=== PATIENT | female | born 1985 | race Caucasian/White ===

== ENCOUNTER 2019-07-22 10:24 | Inpatient (IN) | payer MEDICAID ==
[~2019-07-22] VITALS: Ht 170.2 cm; Wt 127.3 kg
[2019-07-22] MEDS ORDERED: loperamide 2mg capsule PO PRN (12:50)
[2019-07-22] MEDS ORDERED: acetaminophen 325mg tablet PO PRN ×2 (12:50)
[2019-07-22] MEDS ORDERED: magnesium hydroxide 30ml (MOM) UD suspension PO PRN (12:50)
[2019-07-22] MEDS ORDERED: NICOTINE POLACRILEX 2 MG LOZENGE BC PRN (12:50)
[2019-07-22] MEDS ORDERED: mag hydrox/Alum hydrox/simeth 30ml oral suspension PO PRN (12:50)
[2019-07-22] MEDS ORDERED: LORazepam 1 MG tablet PO PRN (12:50)
[2019-07-22] MEDS ORDERED: INSU100I31 SQ (13:03)
[2019-07-22] MEDS ORDERED: METF500T PO (13:03)
[2019-07-22] MEDS ORDERED: GABA-530 PO (13:03)
[2019-07-22] MEDS ORDERED: DULA1.5P (13:15)
[2019-07-22] MEDS ORDERED: NAPR-56 PO (13:15)
[2019-07-22] MEDS ORDERED: GLAT40SY3 SQ (13:15)
[2019-07-22 14:00] VITALS: BP 116/75
--- NOTE | 2019-07-22 15:47 | NUR ---
Admit note: PT [facility] on a 5150 for DTS. Pt arrived at 1520 escorted by security from [facility]. Pt posted on social media she was going to kill herself. Pt had a knife and told police she would stab herself or get them to shoot her. Pt states "I want to and no one wants to help." PT brought in to [place] by Lab Director officers. Pt had earlier in the week made an abrasion to her L neck stating this is the 3rd suicide attempt. Pt overdosed last year. Stressors include meeting a tommy online and planned to move in but this fell through.
[2019-07-22] MEDS ORDERED: FLU VACC QS 2019-20 (6 MOS UP) 60 MCG/0.5 ML VIAL IMVAC ONE (18:30)
[2019-07-22 20:00] VITALS: BP 132/69
[2019-07-22] MEDS ORDERED: CITA20TA28 PO (20:50)
[2019-07-22] MEDS ORDERED: naproxen 500mg tablet PO PRN (20:55)
[2019-07-22] MEDS ORDERED: dextrose 50%-water 50ml dispensing syringe IV PRN ×2 (21:00)
[2019-07-22] MEDS ORDERED: dextrose ORAL solution 15 GM/59 ML bottle PO PRN ×2 (21:00)
[2019-07-22] MEDS ORDERED: glucagon, human recombinant 1mg kit SUBCUT PRN (21:00)
[2019-07-22] MEDS ORDERED: metFORMIN 500mg tablet PO ONE (21:35)
[2019-07-22] MEDS: gabapentin 100mg capsule PO SCH (22:21)
[2019-07-22] MEDS: hydrOXYzine 25 MG tablet PO PRN (22:22)
[2019-07-22] MEDS: insulin glargine (Lantus) pen - multi-dose SQ SCH (22:27)
--- NOTE | 2019-07-23 02:15 | NUR ---
Nursing Progress Note: Legal hold: 5150 Client on involuntary status for DTS Report received from nurse with use of SBAR: JACI Chahal Why are they here: Pt. admitted to [facility] on a 5150 for DTS. She is from [facility] and was transferred from [facility]. Pt posted on social media she was going to kill herself and her mother called the police. When they arrived, pt. had a knife and told police she would stab herself or get them to shoot her. Pt states "I want to and no one wants to help." Pt had earlier in the week made an abrasion to her L neck stating this is the 3rd suicide attempt, and she had previously overdosed last year. Stressors include meeting a tommy online, and planned to move in but this fell through. Assessment What has happened this shift: Pt. sitting in her room reading at the beginning of the shift, this selling underwriter introduced self and established rapport. Pt. presents as guarded, cooperative, and slightly restless. Med Rec completed with pt. input, and medications ordered (per pharmacy pt. will need to bring Trulicity and Glatiramer Acetate from home). Pt. is a diabetic, HS BS obtained and WNL, and ordered HS Lantus administered. Pt. up playing cards in the Group Room and interacting appropriately with others, she then requests to get phone numbers off her cell phone and is monitored by staff while this task is completed. 1:1 completed at bedside after pt. done making phone calls. She continues to endorse S/I, however denies a plan at this time. Pt. states, "You don't have to worry about me, I'm not going to try anything." Pt. identifies stressors as living with family (mother and sister) who are not supportive, states, "I am always the one taking care of others, but no one wants to help me." Pt. 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 This selling underwriter provided active listening and pt. voiced content. Pt. refuses to complete family history assessment at this time r/t fatigue, will endorse to AM shift. She requested PRN Atrax at HS r/t restlessness and insomnia, administered with effectiveness. S/I, H/I: Ongoing S/I, however denies a plan A/VH: Denies Sleep: Pt. requested PRN Atrax at HS r/t restlessness and insomnia, administered with effectiveness. ADL's: Independent Group attendance: Pt. attends snack Were meds taken: Yes Any med S/E: None Mental Status Exam Appearance: Appropriately dressed, wearing a beanie on her head and a sweater Eye contact: Good Behavior: Guarded, cooperative, and slightly restless Speech: WNL, intense at times Mood: Guarded Affect: Constricted Thought process: WNL Thought Content: Preoccupation with depressed thoughts and hopelessness Cognition: A&O X4 Insight: Poor Judgment: Poor Interventions PRN's used: Atrax Therapeutic interventions: Introduced self and established rapport, maintained a safe and therapeutic environment, ensured contract for safety, competed Med Recc, initiated ACHS accuchecks, and maintained Q 15 min safety checks. Restraints/seclusion/emergency medication: N/A Justification of Continued Inpatient Treatment: Pt. requires interruption of current crisis, medication adjustments, and a safe and supportive environment.
[2019-07-23] MEDS: gabapentin 100mg capsule PO SCH ×3 (07:52→21:34)
[2019-07-23] MEDS: metFORMIN 500mg tablet PO SCH ×2 (07:56→17:12)
[2019-07-23 08:00] VITALS: BP 122/65
[2019-07-23] MEDS ORDERED: citalopram 20mg tablet PO SCH (08:00)
[2019-07-23 08:30] LABS: CHOL/HDL RATIO 4.4 (0.00-4.99); CHOLESTEROL 166 MG/DL (0-200); HDL CHOLESTEROL 38 MG/DL (35-60); LDL CHOLESTEROL 111 MG/DL (50-100); TRIGLYCERIDES 170 MG/DL (20-135)
--- NOTE | 2019-07-23 16:24 | NUR ---
Nursing Note: Wound care for Left great toe. White boarder with a deep red spot inside. Pt states she has "debrided it" before. She states last noc they used Saline flush , triple abx ointment and a bandaid. She states it was "an infection under a callous". She states she "went to a doctor in [place] and he didn't know what to do". Pt denies pain, but also states she has neuropathy. She states when it's infected she "can feel pain on the top sometimes".Wound redressed with cleansing with New saline flush, triple abx and bandaid.
--- NOTE | 2019-07-23 16:29 | NUR ---
Nursing Progress Note: Legal hold: 5150 Client on involuntary status for DTS Report received from nurse with use of SBAR: Jazmine Hayes RN Why are they here: Pt. admitted to [facility] on a 5150 for DTS. She is from [facility] and was [place] [facility]. Pt posted on social media she was going to kill herself and her mother called the police. When they arrived, pt. had a knife and told police she would stab herself or get them to shoot her. Pt states "I want to and no one wants to help." Pt had earlier in the week made an abrasion to her L neck stating this is the 3rd suicide attempt, and she had previously overdosed last year. Stressors include meeting a tommy online, and planned to move in but this fell through. Assessment What has happened this shift: Pt. Sleeping at beginning of shift.. Pt awakened for AM BG and was calm, cooperative and pleasant. Meds administered. When asked about home meds, Trulicity and Glatiramer Acetate , pt states my mom will not bring them, she lives over 3 hours away. Pt. is a diabetic, HS BS obtained and WNL, Pt. up playing cards in the Group Room and interacting appropriately with others. She continues to endorse S/I, however denies a plan at this time. She states she is depressed. I want to get out of [place], but I cant get a job and have no money. There is nothing to do there,; its so lonely. Pt. identifies stressors as living with her mother and feeling trapped in [place] town, unable to move anywhere else. RN provided active listening. Wound care provided to Left great toe and wound consult placed per RN. S/I, H/I: Ongoing S/I, however denies a plan A/VH: Denies Sleep: Took naps throughout the day ADL's: Independent Group attendance: Pt.playing cards with other residents in the group room. Were meds taken: Yes Any med S/E: None Mental Status Exam Appearance: Appropriately dressed, wearing a beanie on her head and a sweater Eye contact: Good Behavior: Cooperative Speech: WNL Mood: Calm Affect: Reserved but appropriate Thought Content: WNL Thought Content: Preoccupation with depressed thoughts and hopelessness Cognition: A&O X4 Insight: Poor Judgment: Poor Interventions PRN's used: None Therapeutic interventions: Introduced self and established rapport, maintained a safe and therapeutic environment, ensured contract for safety, ACHS accuchecks, and maintained Q 15 min safety checks. Restraints/seclusion/emergency medication: N/A Justification of Continued Inpatient Treatment: Pt. requires interruption of current crisis, medication adjustments, and a safe
[2019-07-23 20:00] VITALS: BP 128/75
[2019-07-23] MEDS: hydrOXYzine 25 MG tablet PO PRN (21:35)
[2019-07-23] MEDS: insulin glargine (Lantus) pen - multi-dose SQ SCH (21:41)
--- NOTE | 2019-07-24 04:09 | NUR ---
Nursing Progress Note: Legal hold: 5150 Client on involuntary status for DTS Report received from nurse with use of SBAR: JACI Chahal Why are they here: Pt. admitted to [facility] on a 5150 for DTS. She is from [facility] and was transferred from [facility]. Pt posted on social media she was going to kill herself and her mother called the police. When they arrived, pt. had a knife and told police she would stab herself or get them to shoot her. Pt states "I want to and no one wants to help." Pt had earlier in the week made an abrasion to her L neck stating this is the 3rd suicide attempt, and she had previously overdosed last year. Stressors include meeting a tommy online, and planned to move in but this fell through. Assessment What has happened this shift: Received pt up, visible on the unit. After meeting with PA, pt sitting in dayroom on the phone. At one point, pt became tearful, but said she was ok. When pt got off phone, she was cooperative with assessment and denied current suicidal thoughts, but stated she remains depressed. Pt did not want to discuss phone call. Pt talked about her MS and blamed a lot on that. Pt fell asleep at 2200. S/I, H/I: Ongoing S/I, however denies a plan A/VH: Denies Sleep: Pt. requested PRN Atrax at HS r/t restlessness and insomnia, administered with effectiveness. ADL's: Independent Group attendance: Pt. attends HS snack Were meds taken: Yes Any med S/E: None Mental Status Exam Appearance: Appropriately dressed, wearing a beanie on her head and a sweater Eye contact: Good Behavior: Guarded, cooperative, and slightly restless Speech: WNL, intense at times Mood: Guarded Affect: Constricted Thought process: WNL Thought Content: Preoccupation with depressed thoughts and hopelessness Cognition: A&O X4 Insight: Poor Judgment: Poor Interventions PRN's used: Atrax Therapeutic interventions: Introduced self and established rapport, maintained a safe and therapeutic environment, ensured contract for safety, competed Med Recc, initiated ACHS accuchecks, and maintained Q 15 min safety checks. Restraints/seclusion/emergency medication: N/A Justification of Continued Inpatient Treatment: Pt. requires interruption of current crisis, medication adjustments, and a safe and supportive environment.
[2019-07-24] MEDS: metFORMIN 500mg tablet PO SCH ×2 (07:18→17:27)
[2019-07-24] MEDS: gabapentin 100mg capsule PO SCH ×3 (07:19→20:21)
[2019-07-24] MEDS: citalopram 20mg tablet PO SCH (07:19)
[2019-07-24 07:51] VITALS: BP 140/78
--- NOTE | 2019-07-24 10:19 | NUR ---
DM Consult: A1C 7.6. DM ed deferred at this time. Pt admit w/ depression PO 75-100% avg meals meeting needs. TG 170; SABINA d/w RN regarding anti-hyperlipidemic per MD approval. [facility] 07/22. Will continue to monitor. Rec: 1. continue carb controlled diet 2. anti-hyperlipidemic per MD approval w/ TG 170 3. routine bowel care 4. wt per rx Addendum: 07/24/19 at [address] Amended: Links added.
--- NOTE | 2019-07-24 17:01 | NUR ---
Nursing Progress Note: Legal hold: 5150 Client on involuntary status for DTS Report received from nurse with use of SBAR: Yariel RN Why are they here: Pt. admitted to [facility] on a 5150 for DTS. She is from [facility] and was transferred from [facility]. Pt posted on social media she was going to kill herself and her mother called the police. When they arrived, pt. had a knife and told police she would stab herself or get them to shoot her. Pt states "I want to and no one wants to help." Pt had earlier in the week made an abrasion to her L neck stating this is the 3rd suicide attempt, and she had previously overdosed last year. Stressors include meeting a tommy online, and planned to move in but this fell through. Assessment What has happened this shift: Pt sleeping at change of shift. She was compliant with medication administration and cooperative with assessment. She reports feeling depressed, but shares that she feels better. She indicated she likes the Citalopram and feels the increased dose has made her feel better. She denied anxiety, SI, and A/V H. She stated that she had good news and that her friend, Ronn, is going to visit her. Pt shared she talked on the phone with him last night and he told her he loves her. She described her plans to go and live with him in [place]. The plans include the man taking her by bus to the [facility] and because he does not have a drivers license she will drive his car to [place]. While talking about her dislike of living in [place], she stated she cannot find a job there and no single men are available. Redirected the pt to carefully consider her plans and ensure she is thinking through all options. The pt has wound on her L great toe. Wound cleansed with NS, picture taken, antibiotic ointment applied and bandage used to cover wound. Awaiting ordered wound care consult. Pt reports she has neuropathy and she cannot feel her toes. S/I, H/I: Denies A/VH: Denies Sleep: Napped ADL's: Independent Group attendance: No Were meds taken: Yes Any med S/E: None noted or reported Mental Status Exam Appearance: Pt wearing street clothes and a beanie on her head. Eye contact: Direct Behavior: Pleasant and cooperative Speech: WNL, intense at times Mood: Depressed Affect: Constricted Thought process: Linear, impulsive Thought Content: Excited man is coming to visit her. Cognition: A&O X4 Insight: Poor Judgment: Poor Interventions PRN's used: None Therapeutic interventions: Introduced self and established rapport, maintained a safe and therapeutic environment, ensured contract for safety, 1:1 therapeutic assessment, active listening, monitored blood glucose levels, and maintained Q 15 min safety checks. Restraints/seclusion/emergency medication: N/A Justification of Continued Inpatient Treatment: Pt. requires interruption of current crisis, medication adjustments, and a safe and supportive environment.
[2019-07-24 19:00] VITALS: BP 122/75
[2019-07-24] MEDS: insulin glargine (Lantus) pen - multi-dose SQ SCH (20:43)
[2019-07-24] MEDS: hydrOXYzine 25 MG tablet PO PRN (20:45)
--- NOTE | 2019-07-24 23:02 | NUR ---
Nursing Progress Note: Legal hold: 5150 Client on involuntary status for DTS Report received from nurse with use of SBAR: Yariel RN Why are they here: Pt. admitted to [facility] on a 5150 for DTS. She is from [facility] and was transferred from [facility]. Pt posted on social media she was going to kill herself and her mother called the police. When they arrived, pt. had a knife and told police she would stab herself or get them to shoot her. Pt states "I want to and no one wants to help." Pt had earlier in the week made an abrasion to her L neck stating this is the 3rd suicide attempt, and she had previously overdosed last year. Stressors include meeting a tommy online, and planned to move in but this fell through. Assessment What has happened this shift: Pt up in group room at change of shift. She was compliant with medication administration and cooperative with assessment. She reports feeling depressed, but shares that she feels better. She denied anxiety, SI, and A/V H. Pt talked about her dislike of living in [place], she stated she cannot find a job there and no single men are available. Redirected the pt to carefully consider her plans and ensure she is thinking through all options. The pt has wound on her L great toe. Wound cleansed with NS, picture taken, antibiotic ointment applied and bandage used to cover wound. Awaiting ordered wound care consult. Pt reports she has neuropathy and she cannot feel her toes. S/I, H/I: Denies A/VH: Denies Sleep: Napped ADL's: Independent Group attendance: No Were meds taken: Yes Any med S/E: None noted or reported Mental Status Exam Appearance: Pt wearing street clothes and a beanie on her head. Eye contact: Direct Behavior: Pleasant and cooperative Speech: WNL, intense at times Mood: Depressed Affect: Constricted Thought process: Linear, impulsive Thought Content: Excited man is coming to visit her. Cognition: A&O X4 Insight: Poor Judgment: Poor Interventions PRN's used: None Therapeutic interventions: Introduced self and established rapport, maintained a safe and therapeutic environment, ensured contract for safety, 1:1 therapeutic assessment, active listening, monitored blood glucose levels, and maintained Q 15 min safety checks. Restraints/seclusion/emergency medication: N/A Justification of Continued Inpatient Treatment: Pt. requires interruption of current crisis, medication adjustments, and a safe and supportive environment.
[2019-07-25] MEDS: metFORMIN 500mg tablet PO SCH (07:00)
[2019-07-25 07:53] VITALS: BP 132/72
[2019-07-25] MEDS: gabapentin 100mg capsule PO SCH ×2 (08:49→12:40)
[2019-07-25] MEDS: citalopram 20mg tablet PO SCH (08:49)
[2019-07-25] MEDS ORDERED: CITA-124 PO (15:27)
[2019-07-25] MEDS ORDERED: NICO-668 BC (15:27)
--- NOTE | 2019-07-25 15:30 | NUR ---
Nursing Progress Note: Shanta Legal hold: 5150 Client on involuntary status for DTS Report received from nurse with use of SBAR: Any Why are they here: Pt. admitted to [facility] on a 5150 for DTS. She is from [facility] and was transferred from [facility]. Pt posted on social media she was going to kill herself and her mother called the police. When they arrived, pt. had a knife and told police she would stab herself or get them to shoot her. Pt states "I want to and no one wants to help." Pt had earlier in the week made an abrasion to her L neck stating this is the 3rd suicide attempt, and she had previously overdosed last year. Stressors include meeting a tommy online, and planned to move in but this fell through. Assessment What has happened this shift: Client in bed to begin the shift. Compliant with assessment but was very short and angry with this automotive service writer. Initially refused any am interventions and was resistant to care. She eventually complied with medications and FS. FS was 169 but was collected late secondary to resistance of client. She took medications except Glatiramer Acetate which she refused to consider. Client has been in Group Room working on art project. She is still labile and provides short,angry responses to questions. Client was more amicable to BS check at noon which was 110. Client is anticipating discharge today and is eager to leave this facility. At 1400 hours today, client is resting in bed with eyes closed. No distress or problems noted. Client refused to sign discharge forms and did not wish to wait for discharge. Mr. Martinez issued a prescription and client again refused to sign discharge paperwork. No legal ground to hold client so she was allowed to leave unit at 1520 hours. S/I, H/I: Denies A/VH: Denies Sleep: rested at times this shift. ADL's: Independent Group attendance: no Were meds taken: Yes Any med S/E: None noted or reported Mental Status Exam Appearance: Pt wearing street clothes and a beanie on her head. Eye contact: Direct Behavior: labile/angry Speech: WNL, intense at times Mood: Depressed Affect: Constricted Thought process: Linear, impulsive Thought Content: labile this am Cognition: A&O X4 Insight: Poor Judgment: Poor Interventions PRN's used: None Therapeutic interventions: Introduced self and established rapport, maintained a safe and therapeutic environment, ensured contract for safety, 1:1 therapeutic assessment, active listening, monitored blood glucose levels, and maintained Q 15 min safety checks. Restraints/seclusion/emergency medication: N/A Justification of Continued Inpatient Treatment: Pt. requires interruption of current crisis, medication adjustments, and a safe and supportive environment. Addendum: 07/25/19 at 1605 by Ronald Lange RN Client did receive all properties and belongings prior to departing the unit.
[2019-07-27] MEDS ORDERED: DULAGLUTIDE SUBCUT SCH (08:00)
== END 2019-07-25 15:22 | disposition home or self-care (01) | DRG 751 ==
LOC: ADULT MH 10:24
PROVIDERS: ADMIT Psychiatry & Neurology Psychiatry; ATTEND Psychiatry & Neurology Psychiatry
DX: F33.2 Major depressive disorder, recurrent severe without psychotic features (principal); E11.40 Type 2 diabetes mellitus with diabetic neuropathy, unspecified; R45.851 Suicidal ideations; E66.01 Morbid (severe) obesity due to excess calories; I10 Essential (primary) hypertension; F12.90 Cannabis use, unspecified, uncomplicated; F17.210 Nicotine dependence, cigarettes, uncomplicated; F60.3 Borderline personality disorder; Z68.41 Body mass index [BMI] 40.0-44.9, adult; Z79.84 Long term (current) use of oral hypoglycemic drugs; Z79.899 Other long term (current) drug therapy; Z83.3 Family history of diabetes mellitus; Z91.410 Personal history of adult physical and sexual abuse; Z56.0 Unemployment, unspecified; Z23 Encounter for immunization
CPT/HCPCS: 36415; 80061; 82948; 83036; 87081; 99285; J1815; Q2037; Z7610